=== PATIENT | male | born 1995 | race African-American/Black ===

== ENCOUNTER 2016-04-09 13:19 | Emergency (ER) | payer MEDICAID ==
[~2016-04-09] VITALS: Ht 188 cm; Wt 63.5 kg
[~2016-04-09 13:19] MED LIST: ALBUTEROL SULF8.5 GM INH; AUGMENTIN TAB875 MG ORAL; IBUPROFEN800 MG ORAL; NORCO 5-325 TA1 EACH ORAL; PREDNISONE20 MG ORAL; PROMETHAZINE-C118 M1 ORAL
[2016-04-09 13:38] VITALS: BP 122/50
[2016-04-09] MEDS ORDERED: Albuterol ud Inhalation HHN ONE (14:15)
[2016-04-09 14:32] VITALS: BP 122/50
--- NOTE | 2016-04-09 14:46 | Emergency Room Report ---
History of Present Illness General Chief Complaint: Asthma Source: Patient Present Illness HPI 20-year-old male presents emergency department with persistent dry cough and intermittent wheezing times one month. Patient states he has a history of asthma however he has been out of his inhalers for over a month. Patient reports cough worse at nighttime. Patient denies nausea vomiting fevers chills abdominal pain, rashes, productive sputum , sore throat or runny nose. Denies CP , Palpitations, LOC, AMS, dizziness, Changes in Vision, Sensation, paresthesias , or a sudden severe headache. Allergies: Coded Allergies: No Known Allergies (Unverified , 12/18/13) Patient History Past Medical History: see triage record Past Surgical History: none Pertinent Family History: none Immunizations: UTD Reviewed Nursing Documentation: PMH: Agreed, PSxH: Agreed Nursing Documentation-PMH Past Medical History: No History, Except For Hx Asthma: Yes Hx Neurological Problems: No - Rt hip surgery in 2013 Hx Seizures: Yes - Last seizure 2010 Review of Systems All Other Systems: negative except mentioned in HPI Physical Exam Vital Signs Date Time Temp Pulse Resp B/P Pulse Ox O2 Delivery O2 Flow Rate FiO2 04/09/16 13:30 98.1 111 14 122/50 99 Room Air 04/09/16 14:25 21 Sp02 EP Interpretation: reviewed, normal General Appearance: no apparent distress, alert, GCS 15, non-toxic Head: normocephalic, atraumatic Eyes: bilateral eye PERRL, bilateral eye normal inspection ENT: hearing grossly normal, normal pharynx, no angioedema, normal voice Neck: full range of motion, supple/symm/no masses Respiratory: chest non-tender, speaking full sentences, wheezing Cardiovascular #1: regular rate, rhythm, no edema Cardiovascular #2: 2+ carotid (R), 2+ carotid (L), 2+ radial (R), 2+ radial (L) , 2+ dorsalis pedis (R), 2+ dorsalis pedis (L) Gastrointestinal: normal bowel sounds, non tender, soft, no guarding, no rebound Rectal: deferred Genitourinary: normal inspection, no CVA tenderness Musculoskeletal: back normal, gait/station normal, normal range of motion, non- tender, no calf tenderness Neurologic: alert, oriented x3, responsive, motor strength/tone normal, sensory intact, speech normal Psychiatric: judgement/insight normal, memory normal, mood/affect normal, no suicidal/homicidal ideation Reflexes: 4+ bicep (R), 4+ bicep (L), 4+ tricep (R), 4+ tricep (L), 4+ knee (R) , 4+ knee (L) Skin: normal color, no rash, warm/dry, well hydrated Lymphatic: no adenopathy Medical Decision Making PA Attestation Dr. Vieyra is my supervising Physician whom patient management has been discussed with. Diagnostic Impression: Primary Impression: Asthma with acute exacerbation Qualified Codes: J45.21 - Mild intermittent asthma with (acute) exacerbation ER Course 20-year-old male presents emergency department with persistent dry cough and intermittent wheezing times one month. Patient states he has a history of asthma however he has been out of his inhalers for over a month. Patient reports cough worse at nighttime. Patient denies nausea vomiting fevers chills abdominal pain, rashes, productive sputum , sore throat or runny nose. Ddx considered but are not limited to asthma exacerbation, CHF, URI, pneumonia, PE, strep pharyngitis, meningitis. Vital signs: Pt. is afebrile, VS are WNL H&PE are most consistent with URI, asthma exacerbation ORDERS: none required at this time, the diagnosis is clinical ED INTERVENTIONS: Albuterol nebulized treatment. - re-examination post nebulized treatment lungs are CTA bilaterally. DISCHARGE: At this time pt. is stable for d/c to home. Will provide printed patient care instructions, and any necessary prescriptions. Care plan and follow up instructions have been discussed with the patient prior to discharge. Last Vital Signs Date Time Temp Pulse Resp B/P Pulse Ox O2 Delivery O2 Flow Rate FiO2 04/09/16 14:27 21 04/09/16 14:27 111 14 99 Room Air 04/09/16 13:38 98.1 122/50 Disposition: HOME, SELF-CARE Condition: Stable Scripts Prednisone* (PREDNISONE*) 20 Mg Tablet 40 MG ORAL DAILY for 5 Days, TAB Prov: Alexandra Ontiveros 04/09/16 Albuterol Sulfate* (ALBUTEROL SULFATE MDI*) 8.5 Gm Hfa.aer.ad 2 PUFF INH Q3H, #1 INH 0 Refills Prov: Alexandra Ontiveros.Angel 04/09/16 Codeine/Promethazine Hcl* (PROMETHAZINE-CODEINE SYRUP*) 118 Ml Syrup 5 ML ORAL Q6H Y for For Cough, #118 ML 0 Refills Prov: Alexandra Ontiveros 04/09/16 Referrals: [facility],REFERRING (PCP) Patient Instructions: Asthma, Adult Additional Instructions: Take medications as directed. Follow up with PCP in 3-5 days Return sooner to ED if new symptoms occur, or current symptoms become worse. Do not drink alcohol, drive, or operate heavy machinery while taking cough syrup as this may cause drowsiness. - Please note that this Emergency Department Report was dictated using Modebotheatre instructor technology software, occasionally this can lead to erroneous entry secondary to interpretation by the dictation equipment. Alexandra Ontiveros Apr 09, 2016 14:46
[2016-04-09] MEDS ORDERED: ALBUTEROL SULF8.5 GM INH (14:48)
[2016-04-09] MEDS ORDERED: PREDNISONE20 MG ORAL (14:48)
[2016-04-09] MEDS ORDERED: PROMETHAZINE-C118 M1 ORAL (14:48)
== END 2016-04-09 14:32 | disposition home or self-care (01) ==
LOC: EMR 14:00
DX: J45.21 Mild intermittent asthma with (acute) exacerbation (principal)
CPT/HCPCS: 94640; 94664; 99284

== ENCOUNTER → 2018-11-10 | Emergency (ER) | payer SELFPAY ==
[~2018-11-10] VITALS: Ht 188 cm; Wt 77.1 kg
[~2018-11-10] MED LIST changes: +DOXYCYCLINE HY100 M6 PO; +Lidocaine 1% MPF 10mg/ml 5ml INJ ONE
--- NOTE | 2018-11-10 15:48 | NUR ---
ED Nurse Note: Patient walked in to ER with c/o tingling sensation on his testicles. patient stated that mild heaviness sometimes on his testicles. Denies pain on his testicles when urinating.
[2018-11-10 16:00] VITALS: BP 128/78
[2018-11-10 16:04] LABS: APPEARANCE,URINE CLEAR; BILIRUBIN, URINE NEGATIVE (NEGATIVE); GLUCOSE, URINE (UA) NEGATIVE (NEGATIVE); KETONES,URINE NEGATIVE (NEGATIVE); LEUKOCYTE ESTERASE ,URINE 1+ (NEGATIVE); NITRITE,URINE NEGATIVE (NEGATIVE); PH,URINE 6 (4.5-8.0); PROTEIN,URINE 2+ (NEGATIVE); UROBILINOGEN,URINE 1 MG/DL (0.0-1.0)
[2018-11-10 16:05] LABS: COLOR,URINE YELLOW
[2018-11-10 17:16] VITALS: BP 126/65
--- NOTE | 2018-11-10 17:16 | NUR ---
ER DISCHARGE NOTE: Patient is cleared to be discharged per ERMD, pt is aox4, on room air, with stable vital signs. pt was given dc and prescription instructions, pt was able to verbalize understanding, pt id band removed. pt is able to ambulate with steady gait. pt took all belongings.
--- NOTE | 2018-11-10 18:13 | Emergency Room Report ---
History of Present Illness General Chief Complaint: Male Urogenital Problems Source: Patient Present Illness HPI 23-year-old male complaining of slight urinary burning and tingling sensation in bilateral testicles x2 weeks. Denies penile discharge, rash. Denies fever, vomiting, diarrhea, abdominal pain. Sexually active with one female partner in the last 6 months. Allergies: Coded Allergies: No Known Allergies (Unverified , 12/18/13) Patient History Past Medical History: see triage record Reviewed Nursing Documentation: PMH: Agreed; PSxH: Agreed Nursing Documentation-PMH Past Medical History: No History, Except For Hx Asthma: Yes Hx Neurological Problems: No - Rt hip surgery in 2013 Hx Seizures: Yes - Last seizure 2010 Review of Systems All Other Systems: negative except mentioned in HPI Physical Exam Vital Signs Date Time Temp Pulse Resp B/P (MAP) Pulse Ox O2 Delivery O2 Flow Rate FiO2 11/10/18 15:32 99.0 92 18 131/71 (91) 97 Room Air Sp02 EP Interpretation: reviewed, normal Respiratory: chest non-tender, lungs clear, normal breath sounds, speaking full sentences Cardiovascular #1: regular rate, rhythm, no edema Genitourinary: penis normal, scrotum normal, other - no testicular masses or tenderness. Juan A RN bedside automated logistics specialist Neurologic: alert, oriented x3, responsive, motor strength/tone normal, sensory intact, speech normal Psychiatric: judgement/insight normal, memory normal, mood/affect normal, no suicidal/homicidal ideation Medical Decision Making PA Attestation This patient was seen under the direct supervision of Dr. Roland, who directed all aspects of care and diagnostic interpretation. Diagnostic Impression: Primary Impression: Epididymitis Additional Impression: Abnormal urogenital findings ER Course ED course HPI: 23-year-old male complaining of slight urinary burning and tingling sensation in bilateral testicles x2 weeks. Denies penile discharge, rash. Denies fever, vomiting, diarrhea, abdominal pain. Sexually active with one female partner in the last 6 months. Ddx: UTI, Urethritis, epididymitis HPI & PE consistent with: epididymitis Orders/ Interventions: UA shows 1+ leukocyte esterase, occasional bacteria. Patient given Rocephin 250 mg IM. Disposition: Patient discharged with prescription for doxycycline for 10 days. At this time pt. is stable for d/c to home. Will provide printed patient care instructions, and any necessary prescriptions. Care plan and follow up instructions have been discussed with the patient prior to discharge. Please note that this Emergency Department Report was dictated using itravelpipe fitter supervisor maintenance technology software, occasionally this can lead to erroneous entry secondary to interpretation by the dictation equipment. Laboratory Tests Test 11/10/18 15:30 Urine Color Yellow Urine Appearance Clear Urine pH 6 (4.5-8.0) Urine Specific [place] 1.015 (1.005-1.035) Urine Protein 2+ (NEGATIVE) H Urine Glucose (UA) Negative (NEGATIVE) Urine Ketones Negative (NEGATIVE) Urine Blood Negative (NEGATIVE) Urine Nitrite Negative (NEGATIVE) Urine Bilirubin Negative (NEGATIVE) Urine Urobilinogen 1 MG/DL (0.0-1.0) H Urine Leukocyte Esterase 1+ (NEGATIVE) H Urine RBC 0-2 /HPF (0 - 0) H Urine WBC 2-4 /HPF (0 - 0) Urine Squamous Epithelial Cells Few /LPF (NONE/OCC) Urine Bacteria Occasional /HPF (NONE) Urine Mucus Moderate /LPF (NONE/OCC) H Last Vital Signs Date Time Temp Pulse Resp B/P (MAP) Pulse Ox O2 Delivery O2 Flow Rate FiO2 11/10/18 17:16 98.0 82 19 126/65 Room Air 11/10/18 16:00 99 Disposition: HOME, SELF-CARE Condition: Stable Scripts Doxycycline Hyclate (DOXYCYCLINE HYCLATE) 100 Mg Tablet 100 MG PO BID for 10 Days, #20 TAB Prov: Iram Robin 11/10/18 Referrals: NOT CHOSEN [facility],REFERRING (PCP) Patient Instructions: Epididymitis Additional Instructions: Follow-up with PCP in 2 days or return to ER if worsening symptoms, new symptoms or sudden change in condition Iram Robin Nov 10, 2018 18:13
== END | disposition home or self-care (01) ==
LOC: EMR 17:28
DX: N45.1 Epididymitis (principal)
CPT/HCPCS: 81001; 96372; 96374; 99284; J0696

== ENCOUNTER 2020-01-19 12:21 | Emergency (ER) | payer MEDICAID, OTHER ==
[~2020-01-19] VITALS: Ht 188 cm; Wt 77.1 kg
[~2020-01-19 12:21] MED LIST changes: -Lidocaine 1% MPF 10mg/ml 5ml INJ ONE
[2020-01-19 12:25] VITALS: BP 118/75
--- NOTE | 2020-01-19 12:25 | NUR ---
ED Nurse Note: Patient walked in to ER c/o fever and chills onset today after a hot shower. 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 denies sob or cough. Patient has steady gait, AAO x4, VSS at this time.
--- NOTE | 2020-01-19 12:49 | Emergency Room Report ---
History of Present Illness General Chief Complaint: Fever Source: Patient Present Illness HPI 24-year-old male with no known significant past medical history asthma currently controlled here complaining of sudden onset of feeling feverish that started after taking a hot shower earlier today. Reports that he also had to been dose open. Reports that temperature at home was 100. Took NyQuil prior to arrival. Denies any sore throat, abdominal pain, body aches, diarrhea, loss of taste or smell, cough and congestion. Is sitting comfortably with stable vital signs. Patient does not have a fever upon arrival. Denies coming in contact with was positive for Covid. Denies urinary symptoms. Allergies: Coded Allergies: No Known Allergies (Unverified , 12/18/13) COVID-19 Screening Contact w/high risk pt: No Experienced COVID-19 symptoms?: Yes COVID-19 Testing performed SEPARATOR TENDER: No Patient History Past Medical History: see triage record Past Surgical History: none Pertinent Family History: none Social History: Reports: drug use - Marijuana Immunizations: UTD Reviewed Nursing Documentation: PMH: Agreed; PSxH: Agreed Nursing Documentation-PMH Hx Asthma: Yes Hx Neurological Problems: No - Rt hip surgery in 2013 Hx Seizures: Yes - Last seizure 2010 Review of Systems All Other Systems: negative except mentioned in HPI Physical Exam Vital Signs Date Time Temp Pulse Resp B/P (MAP) Pulse Ox O2 Delivery O2 Flow Rate FiO2 01/19/20 12:21 99.1 79 16 118/75 (89) 99 Room Air Sp02 EP Interpretation: reviewed, normal General Appearance: no apparent distress, alert, GCS 15, non-toxic Head: normocephalic, atraumatic Eyes: bilateral eye normal inspection, bilateral eye PERRL ENT: hearing grossly normal, normal pharynx, no angioedema, normal voice Neck: full range of motion, supple/symm/no masses Respiratory: chest non-tender, lungs clear, normal breath sounds, speaking full sentences Cardiovascular #1: regular rate, rhythm, no edema Gastrointestinal: normal bowel sounds, non tender, soft, non-distended, no guarding, no rebound Rectal: deferred Genitourinary: no CVA tenderness Musculoskeletal: back normal Neurologic: alert, motor strength/tone normal, oriented x3, sensory intact, responsive, speech normal Psychiatric: judgement/insight normal, memory normal, mood/affect normal, no suicidal/homicidal ideation Skin: no rash Lymphatic: no adenopathy Medical Decision Making PA Attestation All diagnoses and treatment plans were reviewed and discussed with my supervising physician Dr. Moody Diagnostic Impression: Primary Impression: Fever with chills ER Course 24-year-old male with no known significant past medical history asthma currently controlled here complaining of sudden onset of feeling feverish that started after taking a hot shower earlier today. Reports that he also had to been dose open. Reports that temperature at home was 100. Took NyQuil prior to arrival. Denies any sore throat, abdominal pain, body aches, diarrhea, loss of taste or smell, cough and congestion. Is sitting comfortably with stable vital signs. Patient does not have a fever upon arrival. Denies coming in contact with was positive for Covid. Denies urinary symptoms. Ddx considered but are not limited to: strep pharyngitis, URI, tonsillitis, peritonsillar abscess, influneza, coronavirus Vital signs: are WNL, pt. is afebrile H&PE are most consistent with: Fever with chills ORDERS: Tylenol, Motrin ED INTERVENTIONS: None required at this time. DISCHARGE: At this time pt. is stable for d/c to home. Will provide printed patient care instructions, and any necessary prescriptions. Care plan and follow up instructions have been discussed with the patient prior to discharge. Advised patient take medication as directed, follow primary care provider, get tested for Covid in 2 to 3 days after the onset of symptoms, emergency room. Last Vital Signs Date Time Temp Pulse Resp B/P (MAP) Pulse Ox O2 Delivery O2 Flow Rate FiO2 01/19/20 12:21 99.1 79 16 118/75 (89) 99 Room Air Disposition: HOME, SELF-CARE Condition: Stable Scripts Ibuprofen* (MOTRIN*) 600 Mg Tablet 600 MG ORAL Q8H PRN for FOR PAIN, #30 TAB 0 Refills Prov: Vahid Villegas 01/19/20 Acetaminophen* (TYLENOL EXTRA STRENGTH*) 500 Mg Tablet 2 TAB ORAL Q8H PRN for Prn Headache/Temp > 101, #30 TAB 0 Refills Prov: Vahid Villegas 01/19/20 Patient Instructions: Fever, Adult, [id number] Additional Instructions: Take medication as directed, follow-up with primary care provider, recommend get tested for Covid 2 to 3 days after the onset of symptoms, if worsening symptoms, shortness of breath return to the emergency room Vahid Villegas Jan 19, 2020 12:49
[2020-01-19] MEDS ORDERED: TYLENOL EXTRA500 MG ORAL (12:50)
[2020-01-19] MEDS ORDERED: IBUPROFEN600 M1 ORAL (12:50)
--- NOTE | 2020-01-19 12:58 | NUR ---
ED Nurse Note: Pt cleared by health care Provider for discharge. DC instructions/prescription was given and explained to pt and verbalized understanding of teachings. All medical deviecs such as ID band removed. Pt is AAO x4, ambulatory and left with all personal belongings.
[2020-01-19 12:59] VITALS: BP 118/75
== END 2020-01-19 12:58 | disposition home or self-care (01) ==
LOC: EMR 12:50
DX: R50.9 Fever, unspecified (principal); J45.909 Unspecified asthma, uncomplicated
CPT/HCPCS: 99282